=== PATIENT | female | born 1955 | race Caucasian/White ===

== ENCOUNTER 2017-11-07 12:06 | Outpatient (CLI) | payer BC | END 2017-11-07 12:07 | disposition home or self-care (01) | LOC: BICMAMMO 12:06 | PROVIDERS: ATTEND Internal Medicine | DX: Z12.31 Encounter for screening mammogram for malignant neoplasm of breast (principal); R92.1 Mammographic calcification found on diagnostic imaging of breast; Z80.3 Family history of malignant neoplasm of breast | CPT/HCPCS: 77063; 77067 ==